=== PATIENT | male | born 1985 | race Native Hawaiian/Other Pacific Islander ===

== ENCOUNTER 2016-07-13 21:45 | Emergency (ER) | payer OTHER ==
[~2016-07-13] VITALS: Ht 188 cm; Wt 127.0 kg
[2016-07-13 22:45] VITALS: BP 148/80; TEMP 98.4
== END 2016-07-13 22:40 | disposition home or self-care (01) ==
LOC: ED 21:45
DX: S60.221A Contusion of right hand, initial encounter (principal); W22.8XXA Striking against or struck by other objects, initial encounter; Y92.098 Other place in other non-institutional residence as the place of occurrence of the external cause
CPT/HCPCS: 99283

== ENCOUNTER 2017-06-12 17:45 | Outpatient (CLI) | payer OTHER | END 2017-06-12 17:48 | disposition short-term general hospital (02) | LOC: AMB 17:45 | DX: R07.89 Other chest pain (principal); J02.9 Acute pharyngitis, unspecified | CPT/HCPCS: A0425; A0427 ==

== ENCOUNTER 2017-06-12 17:48 | Emergency (ER) | payer OTHER ==
[~2017-06-12] VITALS: Ht 182.9 cm; Wt 133.8 kg
[2017-06-12 18:24] LABS: PLATELET COUNT 150 K/uL (142-355)
[2017-06-12 18:27] LABS: POTASSIUM 3.5 mmol/L (3.6-5.2); SODIUM 139 mmol/L (136-145)
[2017-06-12 21:58] VITALS: BP 144/53; TEMP 98.3
== END 2017-06-12 22:00 | disposition home or self-care (01) ==
LOC: ED 17:48
PROVIDERS: Family Medicine
DX: R07.89 Other chest pain (principal); F41.8 Other specified anxiety disorders
CPT/HCPCS: 36415; 71045; 80048; 84484; 85027; 93005; 96374; 96375; 99284; J1170; J2060; J2405

== ENCOUNTER 2017-06-15 05:00 | Outpatient (CLI) | payer OTHER | END 2017-06-15 05:06 | disposition short-term general hospital (02) | LOC: AMB 05:00 | DX: K08.89 Other specified disorders of teeth and supporting structures (principal); R22.0 Localized swelling, mass and lump, head | CPT/HCPCS: A0425; A0429 ==

== ENCOUNTER 2017-06-15 05:07 | Emergency (ER) | payer OTHER ==
[~2017-06-15] VITALS: Ht 182.9 cm; Wt 130.6 kg
[2017-06-15 05:18] VITALS: BP 153/90; TEMP 98.2
== END 2017-06-15 05:47 | disposition home or self-care (01) ==
LOC: ED 05:07
DX: K02.9 Dental caries, unspecified (principal)
CPT/HCPCS: 99281

== ENCOUNTER 2017-06-15 15:52 | Observation (INO) | payer OTHER ==
[~2017-06-15] VITALS: Ht 182.9 cm; Wt 126.7 kg
--- NOTE | 2017-06-15 16:30 | NUR ---
Pt. TRANSFERRED TO ROOM 1111 VIA W/C.
[2017-06-15 20:00] VITALS: BP 99/56; TEMP 100.3
[2017-06-15 20:01] VITALS: BP 127/66; TEMP 100.6; Ht 182.9 cm; Wt 126.7 kg
[2017-06-15 20:45] LABS: PLATELET COUNT 150 K/uL (142-355)
[2017-06-15 20:49] LABS: POTASSIUM 3.2 mmol/L (3.6-5.2); SODIUM 140 mmol/L (136-145)
[2017-06-16] VITALS: BP 140/65; TEMP 99.2
[2017-06-16 04:00] VITALS: BP 116/56; TEMP 97.9
[2017-06-16 07:04] LABS: POTASSIUM 3.7 mmol/L (3.6-5.2); SODIUM 138 mmol/L (136-145)
[2017-06-16 07:07] LABS: PLATELET COUNT 154 K/uL (142-355)
[2017-06-16 08:00] VITALS: BP 182/71; TEMP 98.8
[2017-06-16 12:00] VITALS: BP 124/57; TEMP 97.6
--- NOTE | 2017-06-16 13:40 | NUR ---
PT ATE 100% OF LUNCH. NAD NOTED. PT STATES HE WAS ABLE TO EAT CLEAR LIQUID DIET WITH NO PROBLEMS.
[2017-06-16 16:00] VITALS: BP 107/48; TEMP 97.8
--- NOTE | 2017-06-16 18:33 | NUR ---
DC INSTRUCTIONS GIVEN TO PT. INSTRUCTED PT TO [employer] RX FROM [facility]. IV DC'D WITH CANNULA INTACT AND SITE CARE PROVIDED. INSTRUCTED TO FOLLOW UP WITH DR GUIDRY IN 1 WEEK. PT VERBALIZED UNDERSTANDING.
--- NOTE | 2017-06-16 18:40 | NUR ---
PT LEFT AMBULATORY AT THIS TIME. NAD NOTED
== END 2017-06-16 18:35 | disposition home or self-care (01) ==
LOC: RAD 15:52 → MED/SURG 17:20
PROVIDERS: ADMIT Family Medicine
DX: J02.0 Streptococcal pharyngitis (principal); J36 Peritonsillar abscess; R07.89 Other chest pain; F41.8 Other specified anxiety disorders
CPT/HCPCS: 36415; 36591; 71045; 80048; 80053; 84484; 85027; 87040; 93005; 94760; 96366; 96367; 96374; 96375; 99220; 99284; G0378; J1170; J2060; J2175; J2405; J2930